=== PATIENT | male | born 1950 | race Caucasian/White ===

== ENCOUNTER → 2020-02-09 15:03 | Outpatient (CLI) | payer MEDICARE, SELFPAY ==
--- NOTE | ~2020-02-09 | XR_ITS ---
XR lumbar spine 2-3V DATE: 02/09/2020 15:36 INDICATION: Left low back pain for 3 days TECHNIQUE: AP, lateral and coned lateral lumbosacral views COMPARISON: None FINDINGS: Moderate osteopenia. There is normal alignment of the lumbar spine. No fracture or bone naomi truction is evident. The included lower thoracic and lumbar pedicles are intact. There is mild degene rative disc disease of the lumbar spine. The sacroiliac joints are intact. There is abdominal aortic and iliac arterial calcification, without evidence of aneurysm. IMPRESSION: Moderate osteopenia Mild degenerative disc disease Reviewed, dictated and finalized at location B.
== END ==
PROVIDERS: PCP Emergency Medicine; Visit Provider Emergency Medicine
DX: M54.5 Low back pain (principal); M85.88 Other specified disorders of bone density and structure, other site
CPT/HCPCS: 72100

== ENCOUNTER 2020-03-01 07:44 | Outpatient (CLI) | payer MEDICARE, SELFPAY ==
--- NOTE | ~2020-03-01 | DEXA_ITS ---
Bone Density Report Name: Mikey Astudillo Age: 70 Sex: Male Ethnicity: White Date of : 1950 Indication: osteoporosis Referring Provider: Thomas Maloney Study: Bone densitometry was performed. Exam Date: March 01, 2020 Accession number: [id number] Bone Density: Region BMD T-score Z-score Classification AP Spine (L1-L4) 0.920 -1.6 -0.7 Osteopenia Femoral Neck (Left) 0.720 -1.5 -0.4 Osteopenia Total Hip (Left) 0.973 -0.4 0.2 Normal Total Hip Bilateral Avg 0.913 -0.8 -0.2 Normal Femoral Neck (Right) 0.602 -2.4 -1.3 Osteopenia Total Hip (Right) 0.852 -1.2 -0.6 Osteopenia World Health Organization criteria for BMD impression classify patients as: Normal (T-score at or above -1.0), Osteopenia (T-score between -1.0 and -2.5), or Osteoporosis (T-score at or below -2.5). 10-year Fracture Risk(1): Major Osteoporotic Fracture 8.4% Hip Fracture 2.4% Reported Risk Factors: [place] (), Neck BMD=0.602, BMI=37.6 (1) FRAX(R) Version 3.08. Fracture probability calculated for an untreated patient. Fracture probability may be lower if the patient has received treatment. Clinical Information Provided by Patient: Has used the following medications: Vitamin D, Calcium Patient maximum height was 68 No regular weight bearing exercise Drinks caffeinated beverages Impression: The patient has low bone mass, based on the Right Femoral Neck T-score. The patient has an estimated ten-year risk of hip fracture of 2.4% and an estimated ten-year risk of major fracture of 8.4%, based on the WHO FRAX algorithm. Discussion: BONE DENSITY IS LOW AT ONE OR MORE SKELETAL SITES. This patient's lowest T-score is low at one or more skeletal sites. It meets the World Health Organization's (WHO) criteria for ?low bone mass? (T-score between -1.0 and -2.5). The patient's 10-year risk of fracture as calculated by FRAX is less than the threshold where pharmacological therapy is recommended by the National Osteoporosis Foundation (NOF). However, all treatment decisions require clinical judgment and consideration of individual patient factors, including patient preferences, comorbidities, previous drug use, risk factors not captured in the FRAX model (e.g., frailty, falls, vitamin D deficiency, increased bone turnover, interval significant decline in bone density) and possible under or overestimation of fracture risk by FRAX. The patient should follow a healthful lifestyle (good nutrition with adequate calcium and vitamin D, and appropriate weight-bearing exercise). Follow-Up: Consider repeating this study in 2 to 3 years to reassess this patient's status, or sooner if there is some new clinical indication. Reported by: BILL on 03/01/2020 8:13:00 AM. Reviewed, dictated and finalized at loca
== END 2020-03-01 07:45 | disposition home or self-care (01) ==
LOC: ANHIMG 07:49
PROVIDERS: PCP Emergency Medicine; Visit Provider Emergency Medicine
DX: M85.88 Other specified disorders of bone density and structure, other site (principal); M85.852 Other specified disorders of bone density and structure, left thigh; M85.851 Other specified disorders of bone density and structure, right thigh
CPT/HCPCS: 36415; 77080; 80053; 85025

== ENCOUNTER 2020-03-01 08:29 | Outpatient (CLI) | payer MEDICARE, SELFPAY ==
[2020-03-01 12:50] LABS: Alanine Aminotransferase 34 U/L (4-50); Albumin Level 4.5 g/dL (3.5-5.1); Alkaline Phosphatase 48 U/L (38-126); Anion Gap 11 mmol/L (8-16); Aspartate Amino Transferase 29 U/L (17-59); Bilirubin,Total 0.4 mg/dL (0.2-1.3); Blood Urea Nitrogen 21 mg/dL (9-20); Calcium 9.4 mg/dL (8.4-10.2); Carbon Dioxide 22 mmol/L (22-30); Chloride 100 mmol/L (98-107); Estimated Glomerular Filt Rate > 60; Glucose 139 mg/dL (75-110); Potassium 4.8 mmol/L (3.4-5.0); Sodium 133 mmol/L (137-145)
[2020-03-02 11:10] LABS: Basophils Absolute Auto 0.1 K/mm3 (0.0-0.1); Basophils Percent Auto 0.8 % (0.2-1.2); Eosinophils Absolute Auto 0.2 K/mm3 (0-0.3); Eosinophils Percent Auto 3.6 % (0-4.4); Hematocrit 49.8 % (42.0-52.0); Hemoglobin 16.6 g/dL (14.0-18.0); Immature Granulocyte Absolute 0.02 K/mm3 (0.00-0.031); Immature Granulocyte Percent A 0.3 % (0-0.5); Lymphocytes Percent Auto 29.5 % (18.3-44.2); Mean Corpuscular HGB Conc 33.3 g/dl (32-36); Mean Corpuscular Hemoglobin 27.2 pg (26-34); Mean Corpuscular Volume 81.5 fl (80-100); Mean Platelet Volume 9.7 fl (7.4-10.4); Monocytes Absolute Auto 0.6 K/mm3 (0.1-0.6); Monocytes Percent Auto 9.8 % (2.6-8.5); Neutrophils Absolute Auto 3.6 K/mm3 (1.3-6.7); Platelet Count Result 229 k/mm3 (150-375); Red Blood Count 6.11 M/mm3 (4.6-6.20); Red Cell Distribution Width 13.5 % (11.5-14.5); White Blood Count 6.4 K/mm3 (4.5-10.0)
== END 2020-03-01 08:30 | disposition home or self-care (01) ==
LOC: ANHLAB 08:31
PROVIDERS: PCP Emergency Medicine; Visit Provider Internal Medicine Hematology & Oncology
DX: I26.99 Other pulmonary embolism without acute cor pulmonale (principal)
CPT/HCPCS: 36415; 80053; 85025

== ENCOUNTER → 2020-05-31 10:29 | Outpatient (CLI) | payer MEDICARE, SELFPAY ==
--- NOTE | ~2020-05-31 | XR_ITS ---
EXAMINATION: XR knee RT min 4V DATE: 05/31/2020 11:11 INDICATION: Right knee pain. TECHNIQUE: 4 views of right knee were obtained. COMPARISON: None. FINDINGS: There is varus relation at the knee. No fracture. There is severe osteoarthritis of medial compartment and mild osteoarthritis of lateral and patellofemoral compartments. There is a small knee joint effusion. IMPRESSION: 1. Severe right knee osteoarthritis. 2. Small right knee joint effusion. Reviewed, dictated and finalized at location B. EW TRAINER
--- NOTE | ~2020-05-31 | XR_ITS ---
EXAMINATION: XR knee LT min 4V DATE: 05/31/2020 11:11 INDICATION: Left knee pain. TECHNIQUE: 4 views of left knee were obtained. COMPARISON: None. FINDINGS: Bone alignment is normal. No fracture. There is moderate osteoarthritis of lateral compartm ent and mild osteoarthritis of medial and patellofemoral compartments. No knee joint effusion. IMPRESSION: 1. Moderate left knee osteoarthritis. Reviewed, dictated and finalized at location B. TER (CAD) ELECTRICAL
== END ==
PROVIDERS: PCP Emergency Medicine; Visit Provider Emergency Medicine
DX: M17.0 Bilateral primary osteoarthritis of knee (principal); M25.461 Effusion, right knee
CPT/HCPCS: 73564

== ENCOUNTER → 2020-06-01 15:13 | Outpatient (CLI) | payer MEDICARE, SELFPAY ==
--- NOTE | ~2020-06-01 | XR_ITS ---
XR shoulder RT min 2V DATE: 06/01/2020 15:38 INDICATION: Right shoulder pain TECHNIQUE: 4 views COMPARISON: None FINDINGS: [place] devices of the greater tuberosity and glenoid process are noted. Mild osteopenia. There is osteoarthritic spurring of the humeral head at the glenohumeral joint. There is mild degenerative change at the left acromioclavicular joint. No fracture or dislocation, periosteal reaction or bone destruction. No significant abnormal soft tis nicky calcification. IMPRESSION: Osteoarthritis at the glenohumeral joint Mild degenerative change at the acromioclavicular joint Postoperative changes Reviewed, dictated and finalized at location A. ROOM WORKER
== END ==
PROVIDERS: PCP Emergency Medicine; Visit Provider Emergency Medicine
DX: M19.011 Primary osteoarthritis, right shoulder (principal)
CPT/HCPCS: 73030

== ENCOUNTER → 2021-02-17 12:57 | Outpatient (CLI) | payer MEDICARE, SELFPAY ==
--- NOTE | ~2021-02-17 | XR_ITS ---
EXAMINATION: XR shoulder LT min 2V INDICATION: Left shoulder pain TECHNIQUE: Four views of the left shoulder are submitted. COMPARISON: None FINDINGS: Normal alignment. No fracture. There is moderate osteoarthritis of the glenohumeral and acr omioclavicular joints. Soft tissues are unremarkable. IMPRESSION: 1. No acute osseous abnormality. Reviewed, dictated and finalized at location A.
== END ==
PROVIDERS: PCP Emergency Medicine; Visit Provider Emergency Medicine
DX: M25.512 Pain in left shoulder (principal)
CPT/HCPCS: 73030

== ENCOUNTER 2025-05-16 09:03 | Outpatient (CLI) | payer MEDICARE, SELFPAY ==
--- OUTSIDE RECORDS SUMMARY | 2014-10-19 09:00 | XMS_ITS | Continuity of Care Document ---
Author Organization [facility] Address [address] [place] [address] Phone Care Team Providers Care Personnel Records Clerk Name Role Phone Rajat ARTHUR CHT, Beth Unavailable Unavailable Procedures Procedure Date PT RE-EVALUATION THERAPEUTIC EXERCISES MANUAL THERAPY FUNC ACTIVITY HOT/COLD PACK ELECTRIC STIMULATION UNA THERAPEUTIC EXERCISES MANUAL THERAPY FUNC ACTIVITY HOT/COLD PACK ELECTRIC STIMULATION UNATT THERAPEUTIC EXERCISES MANUAL THERAPY FUNC ACTIVITY HOT/COLD PACK ELECTRIC STIMULATION UNA PT RE-EVALUATION THERAPEUTIC EXERCISES MANUAL THERAPY HOT/COLD PACK ELECTRIC STIMULATION UNATT PT EVALUATION THERAPEUTIC EXERCISES HOT/COLD PACK ELECTRIC STIMULATION UNATT Advance Directives Directive Yes / No Effective Date File Name No Information Encounters Encounter Description Practice Location Reason(s) For Visit Diagnoses Date Provider Providers Copied on Encounter [facility], [address] [place] [address] [address], [place], [place], [id number], tel:[phone] [place] No Information Rajat Mendez. [address], [address], [place], [address], [place]. tel:[phone] Referring Provider: Stephen Nawas, [address], [place], [address]. tel:[phone], [place], [place], [id number], tel:[phone] [place] No Information Rajat Mendez. [address] [place] [address], [address], [place], [place], [facility], . tel:[phone] Referring Provider: Morgan Villa[address], [place], [place], [facility]. tel:[phone], [place], [place], [id number], tel:[phone] [place] No Information Rajat Mendez. [address] [place] [address], [address], [place], [facility], . tel:[phone] Referring Provider: José Villa [address], [place], [place], [facility]. tel:[phone], [place], [place], [id number], tel:[phone] [place] No Information Rajat Mendez. [address] [place] [address], [address], [place], [facility], . tel:[phone] Referring Provider: Morgan Villa[address], [place], [address]. tel:[phone], [place], [place], [id number], tel:[phone] [place] Pain in joint involving shoulder region Rajat Mendez. [address] [place] [address], [address], [place], [facility], . tel:[phone] Referring Provider: Morgan [address], [place], [address]. tel:[phone] Family History Family Member Type Diagnosis Age At Onset No Information Payers Payer name Insurance type Covered green party ID Authoriza tion(s) No Information Social History Type Description Quantity Date Captured Comments Sex Male Smoking Status No Information Chief Complaint And Reason For Visit No Information Reason For Referral Reason For Referral No Information History Of Present Illness Encounter Date Complaint History Of Prese nt Illness No Information Functional Status Date Functional Assessmen t No Information Instructions Date Instruction Additional Infor mation No Information Assessments Type Assessment Date No Information Patient Care Teams Name Effective Dates (start - stop) Status Members No Information
--- OUTSIDE RECORDS SUMMARY | 2025-05-16 09:10 | XMS_ITS | Clinical Summary ---
Author Organization [facility] Address [address] [place] [address] Care Team Providers Care Electrician Locomotive Name Role Phone Thomas Maloney MD Primary Care Provider [phone] Allergies No known active allergies Medications rivaroxaban (XARELTO) 20 mg tablet TAKE 1 TABLET DAILY 5 Active omeprazole 20 mg tablet,delayed release (DR/EC) [facility] OMEPRAZOLE 20 MG ORAL TABLET DELAYED RELEASE 5 Active canagliflozin (INVOKANA) 100 mg tablet TAKE 1 TABLET DAILY BEFORE BREAKFAST 9 Active simvastatin (ZOCOR) 20 mg tablet TAKE 1 TABLET DAILY 5 Active lisinopriL (PRINIVIL,ZESTR [place]) 10 mg tablet LISINOPRIL 10 MG ORAL TABLET 5 Active cholecalciferol (Vitamin D3) 1,000 unit capsule Take 1,000 Units by mouth daily Active MULTIVITAMIN ORAL Take by mouth Active Active Problems Problem Noted Date Diagnosed Date OA right knee-severe 06/22/2020 OA left knee-moderate 06/22/2020 Effusion of right knee 06/22/2020 Surgical History Surgery Date Site/Laterality Comments SHOULDER SURGERY Right x2 SHOULDER SURGERY Left KNEE SURGERY Right Medical History Medical History Date Comments Pulmonary embolism Deep vein thrombosis (HCC) Gastric reflux Hypercholesteremia Hypertension Rheumatoid arthritis (HCC) Family History Medical History Relation Name Comments Cancer Father Arthritis Mother Diabetes Mother Relation Name Status Comments Father Mother Social History Tobacco Use Types Packs/Day Years Used Date Smoking Tobacco: Former Cigarettes 3 20 Alcohol Use Standard Drinks/Week Comments Yes 0 (1 standard drink = 0.6 oz pur e alcohol) Personal Safety Answer Date Recorded Getting School Help Needed Not on file 09/18 Sex and Gender Information Value Date Recorded Sex Assigned at Not on file Legal 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 Gender Identity Not on file Sexual Orientation Not on file Obstetrics History Last Filed Vital Signs Vital Sign Reading Time Taken Comments Blood Pressure 122/67 02/25/2012 12:00 PM CDT Pulse 89 02/25/2012 12:00 PM CDT Temperature - - Respiratory Rate - - Oxygen Saturation 94% 02/25/2012 12:00 PM CDT Inhaled Oxygen Concentration - - Weight 106.6 kg (235 lb) 01/04/2021 2:58 PM CDT Height 172.7 cm (5' 8) 01/04/2021 2:58 PM CDT Body Mass Index 35.73 01/04/2021 2:58 PM CDT Plan of Treatment Not on file Insurance [employer] MEDICARE Care Teams Electrician Locomotive Relationship Specialty Start Date End Date Thomas Maloney MD PCP - General Emergency Medicine 06/02/20
--- OUTSIDE RECORDS SUMMARY | 2025-05-16 09:10 | XMS_ITS | Clinical Summary ---
Author Organization [facility] Address [address] [place] [address] Care Team Providers Care Educational Speech Language Clinician Name Role Phone Unavailable Primary Care Provider Unavailabl e Allergies No known active allergies Medications multivitamins-mine rals-lutein (CENTRUM SILVER) TabletIndications: Hypertension,Hyper lipidemia,GERD (gastroesophageal reflux disease),Nasal congestion,Dizzine ss and giddiness Take 1 Tab by mouth daily. Active OTHERIndications:t umeric Tumeric 2 tabs daily . Active OTHERIndications:o steo bi flex 2 tabs daily Osteo biflex 2 tabs daily . Active canagliflozin (INVOKANA) 100 mg TAKE 1 TABLET DAILY BEFORE BREAKFAST 90 Tablet 4 9 Active simvastatin (ZOCOR) 20 mg tabletIndications: Essential hypertension,Hyper lipidemia, unspecified hyperlipidemia type,Hx of venous thromboembolic disease,Elevated blood sugar,Wellness examination,Other chronic pulmonary embolism without acute cor pulmonale,Factor V Leiden mutation,Gastroeso phageal reflux disease without esophagitis TAKE 1 TABLET DAILY 90 Tablet 0 Active omeprazole (PriLOSEC) 20 mg Capsule, Delayed Release(E.C.) TAKE 1 CAPSULE DAILY 90 Capsule 1 0 Active cholecalciferol, Vitamin D3, (VITAMIN D3) 25 mcg (1,000 unit) Capsule Take 1,000 Units by mouth. Active HYDROcodone-acetam inophen (NORCO) 5-325 mg tablet Take 1 Tablet by mouth every 8 hours as needed. Active Xarelto 10 mg TabletIndications: Pulmonary embolism, unspecified chronicity, unspecified pulmonary embolism type, unspecified whether acute cor pulmonale present (CMS/HCC) TAKE 1 TABLET DAILY WITH SUPPER 90 Tablet 3 2 Active Active Problems Patient Care Coordination No te Formatting of this note migh t be different from the original. 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 Lupus anticoagulant negative, Cardiolipinantibodies negative, normal protein S. Prothrombin gene mutation negative. Assessment & Plan (11/05/2014 1:38 PM CDT): Since he had another episode of pulmonary embolism in August 2014, he is a candidate for lifelong anticoagulation. Assessment & Plan (03/05/2014 1:20 PM CDT): Has not had thromboembolism in the past 6 months and has been on aspirin. Assessment & Plan (09/10/2013 1:57 PM DETAIL MAKER AND FITTER): I discussed the slightly increased risk of thromboembolism with heterozygous factor V Leiden mutation. I also explained that MTHFR mutation can increase thromboembolism through elevated homocysteine level, but since his homocystine level was normal, that would not be a concern now. I have asked him to take a multivitamin to try and keep the homocystine level within normal limits. Unless he develops another episode of a DVT or PE, I would not start him on Coumadin but would continue him on aspirin at full dose. He verbalized understanding. GERD (gastroesophageal reflux disease) 3 Pulmonary embolus 10/03/2011 Overview (11/05/2014): Dx in 04/2011, while visiting from [place], with multiple, small blood clots in B/L lungs and LLE DVT at [facility]. Was on coumadin for [address] chest (08/19/13): Linear scarring left lung base. No pulmonary emboli. Sliding type hiatus hernia. Venous doppler (08/19/13): No evidence of deep or superficial vein thrombosis involving the left lower extremity. Had right shoulder surgery on 08/07/14. Hospitalized on 09/17/14 with b/l PE, had ?embolectomy. Had IVC filter placed. Started on Lovenox and switched to Xarelto. Assessment & Plan (11/05/2014 1:40 PM CDT): I asked him to continue taking xarelto for the rest of his life. Since he will be on anticoagulation, it will not matter significantly whether or not he has IVC filter in place. Even if the filter is left in place, since he will be on xarelto, there's no ongoing risk of thromboembolism because of the filter. I will try and obtain his records from [facility]. Will continue to monitor him every 3-4 months for now. He knows to contact us in the interim for any new problems. He was satisfied with the office visit and had no further questions. Assessment & Plan (03/05/2014 1:20 PM CDT): He continues to stay active with no evidence of thromboembolism in the past 6 months. I encouraged him to continue taking enteric-coated aspirin 325 mg and watch for dyspepsia, hematochezia or melena while on it. I will monitor him every 6 months. I reminded him that should he develop another episode of thromboembolism, he'll be placed on xarelto, probably indefinitely. He knows to contact us in the interim for new problems. He was satisfied with the office visit and had no further questions. Assessment & Plan (09/10/2013 1:54 PM DETAIL MAKER AND FITTER): I have had a long discussion with the patient and his about his prior pulmonary embolism which may have been contributed by his long car rides at the time in addition to underlying heterozygous factor V Leiden mutation and may have been contributed by MTHFR mutation. However, recent evaluation showed no evidence of residual leg DVT or pulmonary embolism. I reassured him that his wheezing is probably related to prior smoking induced lung changes, bronchial asthma or seasonal allergies but not due to residual pulmonary embolism. Even though he has slightly increased risk for another blood clot because of factor V Leiden mutation and prior DVT, with no residual DVT or PE, I don't believe he needs definitive anticoagulate at this time. However, I recommended that he take enteric-coated aspirin 325 mg instead of 81 mg daily and watch for gastritis and GI bleeding symptoms while on aspirin. I also explained that should he have another episode of leg DVT or pulmonary embolism, I would recommend anticoagulation for life. He knows to contact PCP or us or go to the emergency room for any signs or symptoms of pulmonary embolism. The patient and his verbalized understanding of today's discussion, were satisfied with the office visit, and had no further questions. Thrombophlebitis 10/03/2011 Hypertension 10/03/2011 Hyperlipidemia 10/03/2011 Hx of venous thromboembolic disease Resolved Problems Problem Noted Date Diagnosed Date Resolved Date Fever 11/28/2014 04/22/2015 Nausea 11/28/2014 04/22/2015 Headache 11/28/2014 04/22/2015 Chills 11/28/2014 04/22/2015 Rash 11/28/2014 04/22/2015 Myalgia 11/28/2014 04/22/2015 Dizzy 11/28/2014 04/22/2015 Dehydration 11/28/2014 04/22/2015 Tick bite of back 04/22/2015 Immunizations Immunization Administration Dates Next Due (PREVNAR 13)(6 WKS UP) PNEUM OCOCCAL CONJUGATE (PCV13) 0.5 ML, IM 04/22/2015 INFLUENZA VACCINE QUADRIVALENT 3 YR UP PF IM 07/2014 Influenza Seasonal Unspecified Formulation IM Pneumococcal conjugate, unspecified formulation 08/31/2014 Family History Medical History Relation Name Comments Cancer Brother 1 Cancer Brother 2 Cancer Father esophageal canc er Diabetes Mother Colon Cancer Paternal Uncle Relation Name Status Comments Brother 1 Alive Brother 2 Brother 3 Father Mother Alive Paternal Uncle Sister Social History Tobacco Use Types Packs/Day Years Used Date Smoking Tobacco: Former Cigarettes 2 40 0 07/23/1964 - 07/23/2004 Smokeless Tobacco: Never Alcohol Use Standard Drinks/Week Comments Yes 0.8 (1 standard drink = 0.6 oz p ure alcohol) socially, rarely Sex and Gender Information Value Date Recorded Sex Assigned at Not on file Legal Sex Male 6:07 AM DETAIL MAKER AND FITTER Gender Identity Not on file Sexual Orientation Not on file Occupation Industry Job Start Date Job End Date Not on file Not on file Not on file Not on file Last Filed Vital Signs Vital Sign Reading Time Taken Comments Blood Pressure 147/91 06/24/2020 12:59 PM DETAIL MAKER AND FITTER Pulse 83 06/24/2020 12:59 PM DETAIL MAKER AND FITTER Temperature 36.7 C (98.1 F) 06/24/2020 12:59 PM DETAIL MAKER AND FITTER Respiratory Rate 16 01/30/2019 10:0 9 AM CDT Oxygen Saturation 95% 06/24/2020 12: 59 PM DETAIL MAKER AND FITTER Inhaled Oxygen Concentration - - Weight 108.8 kg (239 lb 14.4 oz) 2019 12:59 PM DETAIL MAKER AND FITTER Height 172.7 cm (5' 8) 06/24/2020 12:5 9 PM DETAIL MAKER AND FITTER Body Mass Index 36.48 06/24/2020 12:59 PM DETAIL MAKER AND FITTER Plan of Treatment Health Maintenance Due Date Last Done Comments DTAP/TDAP/TD VACCINES (1 - Tdap) 1970 FIT-DNA Q 3 years 02/28/1996 FIT/FOBT Q 1 year 02/28/1996 Flex Sig/CT Colonography Q 5 years 02/28/1996 ZOSTER VACCINE (1 of 2) 2001 COLORECTAL SCREENING 02/05/2019 02/05/2014, 02/05/2014, 03/11/2012, Additional history exists Colorectal Cancer Screening 02/05/2019 PNEUMOCOCCAL VACCINE 50+ YEA RS (3 of 3 - PCV20 or PCV21) 04/22/2020 04/22/2015, 09/19/2014, 08/31/2014 INFLUENZA VACCINE (#1) 2025 5, 09/19/2014, 08/31/2014 RSV VACCINE (60+ or ) (1 - 1-dose 75+ series) 2026 Advance Directives For more information, please contact: [phone] * Full Code (Latest Code Status on File) Date Activated Date Inactivated Comments 11/28/2014 6:33 AM 11/29/2014 6:42 PM * Full Code Date Activated Date Inactivated Comments 02/05/2014 10:41 AM 02/05/2014 2:38 PM * Full Code Date Activated Date Inactivated Comments 03/11/2012 9:57 AM 03/11/2012 1:30 PM
--- OUTSIDE RECORDS SUMMARY | 2025-05-16 09:10 | XMS_ITS | Clinical Summary ---
Author Organization [facility] Address [address] [facility] [address] [place] [address] Phone Care Team Providers Care House Player Name Role Phone Thomas Maloney MD Primary Care Provider [phone] Allergies No known active allergies Medications rivaroxaban (XARELTO) 10 MG Tablet Take 10 mg by mouth daily. 0 Active Canagliflozin 100 MG Tablet Invokana 9 Active simvastatin (ZOCOR) 20 MG Tablet TAKE 1 TABLET DAILY 5 Active lisinopril (PRINIVIL, ZESTRIL) 10 MG Tablet every morning. 5 Active Cholecalciferol 25 mcg Capsule Take 1,000 Units by mouth daily. Active multiple vitamin with minerals (CENTRUM SILVER) Tablet daily. 5 Active [place]-3 Fatty Acids (OMEGA 3 PO) Take by mouth daily. Active omeprazole (PriLOSEC) 20 MG CAPSULE DELAYED RELEASEIndicatio ns:Gastroesophag eal reflux disease, unspecified whether esophagitis present Take 1 Capsule by mouth 2 times daily. 180 Capsule Active Additional Information Patient taking differently:20 mg OralDAILY, Reported on 11/23/2020 Active Problems Problem Noted Date Diagnosed Date [place] (obstructive sleep apnea) 01/03/2021 Non morbid obesity 01/03/2021 Essential (primary) hypertension 01/03/2021 Gastroesophageal reflux disease with esophagitis 01/03/2021 Factor V Leiden mutation 10/18/2020 Immunizations Immunization Administration Dates Next Due Pneumococcal PCV, Unspecified Formulation 2014 Family History Medical History Relation Name Comments Cancer Father Diabetes Mother Colon Cancer Paternal Uncle Relation Name Status Comments Father Esophagus cance r Mother Paternal Uncle Social History Tobacco Use Types Packs/Day Years Used Date Smoking Tobacco: Former Cigarettes 3 35 0 12/15/1954 - 12/15/1989 Smokeless Tobacco: Never Tobacco Cessation:Counseling Given: No Alcohol Use Standard Drinks/Week Comments Yes 0 (1 standard drink = 0.6 oz pure alcohol) Beer: drinks about 4 beers 3-4x daily Sexually Active Control Partners Comments Not Currently Sex and Gender Information Value Date Recorded Sex Assigned at Not on file Legal 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 Gender Identity Not on file Sexual Orientation Not on file Last Filed Vital Signs Vital Sign Reading Time Taken Comments Blood Pressure 126/80 01/03/2021 10:52 AM CDT Pulse 101 01/03/2021 10:52 AM CDT Temperature 36.4 C (97.5 F) 01/03/2021 10:52 AM CDT Respiratory Rate 18 01/03/2021 10:5 2 AM CDT Oxygen Saturation 96% 01/03/2021 10: 52 AM CDT Inhaled Oxygen Concentration - - Weight 109.2 kg (240 lb 11.2 oz) 2020 10:52 AM CDT Height 172.7 cm (5' 8) 01/03/2021 10:5 2 AM CDT Body Mass Index 36.6 01/03/2021 10:52 AM CDT Plan of Treatment Health Maintenance Due Date Last Done Comments Hepatitis C Virus (HCV) Screening 1950 TdaP Immunization 1950 Cologuard 02/28/1996 Immunochemical Fecal Occult Blood 02/28/1996 Pneumococcal Immunization (5 0+ years) (1 of 1 - PCV) 2001 08/31/2014 Zoster Immunization (1 of 2) 2001 Respiratory Syncytial Virus (RSV) Immunization (Adult) (1 - Risk 60-74 years 1-dose series) 2011 Medicare Initial AWV [id number] 07/23/2021 Influenza Immunization (#1) 2025 SARS-COV-2 Immunization ( - 2023- season) 2025 Colonoscopy 12/15/2025 12/15/2020 Colorectal Cancer Screening 12/15/2025 Hepatitis B Immunization Aged Out No longer eligible based on patient's age to complete this topic Human Papillomavirus (HPV) Immunization Aged Out No longer eligible b ased on patient's age to complete this topic Meningococcal Immunization (ACWY) Aged Out No longer eligible based on patient's age to complete this topic Rotavirus Immunization Aged Out No lo nger eligible based on patient's age to complete this topic Insurance MEDICARE C AETNA MEDICARE C AETNA Care Teams House Player Relationship Specialty Start Date End Date Thomas Maloney MD [address] [place] [address] PCP - General Family Medicine 10/18/20
--- NOTE | 2025-05-16 09:29 | ECG_ITS ---
Test Date: 2025-05-16 09:39:30 Measurements Intervals [place] Rate: 79 P: 72 NE: 183 QRS: 34 QRSD: 64 T: 61 QT: 338 QTc: 389 Interpretive Statements SINUS RHYTHM CANNOT R/O SEPTAL INFARCT, AGE INDETERMINATE BASELINE ARTIFACT- I, III, AVR, AVL, AVF, V4, V6 ABNORMAL ECG No previous ECG available for comparison Electronically Signed On 05-16-2025 10:43:52 CDT by Samir Yates D.O.
[2025-05-16 09:43] LABS: Hematocrit 47.5 % (42.0-52.0); Hemoglobin 16.0 g/dL (14.0-18.0); Immature Granulocyte Percent A 0.3 % (0-0.5); Lymphocytes Absolute Auto 1.30 K/mm3 (0.9-3.2); Mean Corpuscular HGB Conc 33.7 g/dl (32-36); Mean Corpuscular Hemoglobin 27.6 pg (26-34); Mean Corpuscular Volume 82.0 fl (80-100); Nucleated Red Blood Cells Absolute Auto 0.000 K/mm3 (0.0-0.012); Nucleated Red Blood Cells Perc 0.0 % (0.0-0.2); Platelet Count Result 195 k/mm3 (150-375); Red Blood Count 5.79 M/mm3 (4.6-6.20); White Blood Count 6.0 K/mm3 (4.5-10.0)
[2025-05-16 09:44] LABS: Add Urine Microscopic? NO; Appearance Urine Clear (Clear); Glucose Urine UA Negative (Negative); Leukocyte Esterase Ur Negative LEU/UL (Negative); Nitrate Urine Negative (Negative); Specific Grav Ur 1.025 (1.001-1.035)
[2025-05-16 09:57] LABS: Hemoglobin A1C 5.9 % (<5.7)
[2025-05-16 10:01] LABS: Alanine Aminotransferase 44 U/L (6-50); Albumin Level 4.5 g/dL (3.5-5.1); Alkaline Phosphatase 59 U/L (38-126); Anion Gap 9 mmol/L (4-12); Aspartate Amino Transferase 36 U/L (17-59); Bilirubin,Total 0.6 mg/dL (0.2-1.3); Blood Urea Nitrogen 16 mg/dL (9-20); Calcium 9.7 mg/dL (8.4-10.2); Carbon Dioxide 29 mmol/L (22-30); Chloride 98 mmol/L (98-107); Cholesterol 169 mg/dL (0-200); Estimated Glomerular Filt Rate > 60; Glucose 167 mg/dL (65-110); HDL Direct 46 mg/dL; Potassium 4.3 mmol/L (3.4-5.0); Sodium 136 mmol/L (137-145); Total Protein 7.2 g/dL (6.3-8.2); Triglycerides 235 mg/dL (<150)
[2025-05-16 10:16] LABS: MALB Creatinine Ratio 8.4 mg/g (0-30)
[2025-05-16 10:36] LABS: Thyroid Stimulating Hormone 1.390 uIU/mL (0.465-4.680)
== END 2025-05-16 09:04 | disposition home or self-care (01) ==
PROVIDERS: PCP Family Medicine; Visit Provider Nurse Practitioner
DX: E78.5 Hyperlipidemia, unspecified (principal); I10 Essential (primary) hypertension; E11.9 Type 2 diabetes mellitus without complications; R94.31 Abnormal electrocardiogram [ECG] [EKG]; E55.9 Vitamin D deficiency, unspecified; D68.59 Other primary thrombophilia; R53.81 Other malaise; R63.5 Abnormal weight gain
CPT/HCPCS: 36415; 80053; 80061; 81003; 82043; 83036; 84443; 85025; 93005